=== PATIENT | female | born 1995 | race Caucasian/White ===

== ENCOUNTER 2024-01-30 20:06 | Emergency (ER) | payer OTHER ==
[2024-01-30 20:12] VITALS: PULSE 71; TEMP 97.9; BMI 29.8
[2024-01-30 21:07] LABS: BASO % 0.9 % (0-2.0); EOS % 0.9 % (0-4.5); HEMATOCRIT 38.7 % (32.4-45.2); LYMPH % 20.2 % (8-40); MCH 28.2 pg (25.7-33.7); MCHC 33.5 g/dl (32.0-36.0); MEAN CELL VOLUME 84.1 fl (80-96); MEAN PLT VOLUME 9.2 fl (7.5-11.1); MONO % 5.8 % (3.8-10.2); NEUT % 72.2 % (42.8-82.8); PLATELET COUNT 268 10^3/uL (134-434); RBC 4.61 M/mm3 (3.60-5.2); RDW 13.8 % (11.6-15.6); WHITE BLOOD COUNT 11.6 K/mm3 (4.0-10.0)
[2024-01-30] MEDS ORDERED: FAMOTIDINE 20 MG TABLET ONE (21:12)
[2024-01-30] MEDS ORDERED: ACETAMINOPHEN 325 MG TABLET (FP) ONE (21:12)
[2024-01-30] MEDS ORDERED: SUCRALFATE 1 GM TABLET (FP) ONE (21:12)
[2024-01-30] MEDS ORDERED: MAG HYDROX/AL HYDROX/SIMETH 30 ML UNIT-DOSE CUP ONE (21:13)
[2024-01-30 21:14] LABS: INR 1.06 (0.83-1.09)
[2024-01-30] MEDS: FAMOTIDINE 20 MG TABLET PO ONE (21:22)
[2024-01-30] MEDS: ACETAMINOPHEN 500 MG TABLET (FP) PO ONE (21:22)
[2024-01-30] MEDS: MAG HYDROX/AL HYDROX/SIMETH 30 ML UNIT-DOSE CUP PO ONE (21:23)
[2024-01-30] MEDS: SUCRALFATE 1 GM TABLET (FP) PO ONE (21:23)
[2024-01-30 21:59] LABS: POTASSIUM 3.9 mmol/L (3.5-5.1)
[2024-01-30 22:00] VITALS: BP 129/74; RESP 18
[2024-01-30 22:00] LABS: CALCIUM 8.8 mg/dL (8.5-10.1)
[2024-01-30 22:01] LABS: ALBUMIN 4.1 g/dl (3.4-5.0); BLOOD UREA NITROGEN 9.8 mg/dL (7-18); MAGNESIUM 2.3 mg/dL (1.8-2.4)
[2024-01-30 22:04] LABS: CREATININE 0.8 mg/dL (0.55-1.3)
[2024-01-30 22:06] LABS: BILIRUBIN,TOTAL 0.4 mg/dL (0.2-1); TOT PROT 7.6 g/dl (6.4-8.2)
== END 2024-01-30 23:26 | disposition home or self-care (01) ==
LOC: JER 20:06 → JERFT 20:06 → JER 23:26
DX: R07.89 Other chest pain (principal); R20.0 Anesthesia of skin; R53.83 Other fatigue
CPT/HCPCS: 36415; 71046-TC-FY; 80053; 83735; 84484; 84703; 85025; 85610; 85730; 93005; 93010; 99285-25